=== PATIENT | female | born 1985 ===

== ENCOUNTER 2020-12-16 09:06 | Inpatient (IN) | payer MEDICAID, OTHER ==
[2020-12-16] MEDS ORDERED: FAMOTIDINE 20 MG/2 ML INJ IV NR (09:48)
[2020-12-16] MEDS ORDERED: BICITRA ORAL LIQD 30ML PO NR (09:48)
[2020-12-16] MEDS ORDERED: METOCLOPRAMIDE 10 MG/2 ML INJ IV NR (09:48)
--- NOTE | 2020-12-16 09:48 | History and Physical Report ---
History of Present Illness Date of examination: 12/16/20 Date of admission: 12/16/20 09:06 Chief complaint: ERCS Multiparity, desires surgical sterilization Past History Past Surgical History: section - Obstetrical History Expected Date of Delivery: 12/21/20 Actual Gestation: 39 Week(s) 2 Day(s) : 2 Para: 1 Medications and Allergies Allergies Allergy/AdvReac Type Severity Reaction Status Date / Time No Known Allergies Allergy Unverified 12/16/20 10:08 Home Medications Medication Instructions Recorded Confirmed Last Taken Type Ibuprofen [Motrin] 600 mg PO Q8H PRN #60 tablet 12/16/20 Unknown Rx oxyCODONE /ACETAMINOPHEN [Percocet 1 tab PO Q6HR PRN #20 tablet 12/16/20 Unknown Rx 5/325] Review of Systems All systems: negative (no OB complaints) - Physical Exam Breasts: Positive: deferred Cardiovascular: Regular rate Lungs: Positive: Clear to auscultation Abdomen: Positive: normal appearance, soft, normal bowel sounds Genitourinary (Female): Positive: normal external genitalia Vagina: Positive: normal moisture Uterus: Positive: enlarged Anus/Rectum: Positive: normal perianal skin Deep Tendon Reflex Grade: Normal +2 - Obstetrical FHR: category 1 Results Result Diagrams: 12/16/20 10:50 All other labs normal. 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
[2020-12-16] MEDS ORDERED: LACTATED RINGERS 1,000 ML IV SCH (10:00)
[2020-12-16] MEDS ORDERED: OXYTOCIN DRIP 30 UNITS/500 ML BAG IV SCH ×2 (10:00→17:00)
[2020-12-16 11:06] LABS: Basophils % (Auto) 0.2 % (0.0-1.8); Hematocrit 35.3 % (30.3-42.9); Hemoglobin 12.2 gm/dl (10.1-14.3); Lymphocytes # (Auto) 0.9 K/mm3 (1.2-5.4); Lymphocytes % (Auto) 8.3 % (13.4-35.0); Mean Corpuscular HGB Conc 35 % (30-34); Mean Corpuscular Volume 80 fl (79-97); Monocytes # (Auto) 0.8 K/mm3 (0.0-0.8); Monocytes % (Auto) 7.1 % (0.0-7.3); Platelet Count 209 K/mm3 (140-440); Red Blood Count 4.41 M/mm3 (3.65-5.03); Red Cell Distribution Width 15.5 % (13.2-15.2)
[2020-12-16] MEDS ORDERED: ceFAZolin/Water 2 GM/20 ML 2 GM/20 ML SYRINGE IV ONE (11:26)
[2020-12-16] MEDS ORDERED: FAMOTIDINE 20 MG/2 ML INJ IV ONE (13:40)
[2020-12-16] MEDS ORDERED: METOCLOPRAMIDE 10 MG/2 ML INJ IV ONE (13:40)
--- NOTE | 2020-12-16 13:40 | Procedure Note ---
OB Delivery Note - Delivery Date of Delivery: 12/16/20 Surgeon: MESFIN PATEL - Section Preop diagnosis: desires sterilization Postop diagnosis: same section procedure: repeat low transverse, bilateral tubal ligation Disposition: PACU Complications: none Narrative: Preop diagnosis: IUP at 39.2 weeks, previous sectionx1, multiparity desires permanent sterilization Postop diagnosis: Same Procedure: Repeat low transverse section via Pfannenstiel incision with Mofied Hollsopple Bilateral Tubal ligation Surgeon: Dr. Mesfin Patel Anesthesia spinal Complications none EBL 917ml IV fluids 850 mL Urine output 300 mL, clear Drains Lino to gravity Findings: Viable male with weight 2940gms and 8/9, normal uterus tubes and ovaries bilaterally Procedure: Patient was consented in OB triage, taken to the operating room where she received excellent spinal anesthesia. She was then placed in the dorsal supine position with a leftward tilt. The abdomen was prepped and draped in a sterile fashion, and a timeout was verified. Adequate anesthesia was confirmed prior to the skin incision. A Pfannenstiel skin incision was made with a scalpel taken down to the underlying structures and the fascia was incised in the midline. The incision was extended laterally with curved James scissors, the superior and inferior aspects of the fascial incisions were grasped with Stef clamps and the rectus muscles dissected sharply. The abdomen was entered bluntly in the midline carried down inferiorly with good visualization of the bladder. The vesicouterine peritoneum was tented with Jamaican forceps and incised in the midline with Metzenbaum scissors and the vesicouterine peritoneum taken down sharply. The uterine incision was then made sharply with a scalpel. The inferior and superior aspect of the uterine incisions were extended bluntly, the baby's head was delivered atraumatically. The remainder of the delivery was uncomplicated, no nuchal cord. The cord was clamped and cut and baby handed to waiting NICU team. An intact placenta with three-vessel cord delivered manually. The uterus was then cleared of all clots and debris and the uterus exteriorized. The uterine incision was closed in 2 layers of 0 vicryl with excellent hemostasis. Attention then turned to the fallopian tubes which were suture ligated in the usual fashion with excellent hemostasis. The abdomen was then irrigated with warm normal saline and the uterus placed back into the abdomen atraumatically. A second look at the uterine incision assured hemostasis. The peritoneum was closed with 3-0 Vicryl, the rectus muscles approximated with 3-0 Vicryl, and the fascia closed with 0 Vicryl in the usual fashion. The subcuticular structures were closed with interrupted sutures of 3-0 Vicryl and the skin closed with 4-0 Monocryl. A pressure dressing was applied. All sponge needle and instrument counts were correct x2. There were no complications. Mom and baby stable to PACU. EBL 917 mL Luis Patel MD
[2020-12-16] MEDS ORDERED: BICITRA ORAL LIQD 30ML PO ONE (14:00)
[2020-12-16] MEDS ORDERED: ceFAZolin/Water 2 GM/20 ML 2 GM/20 ML SYRINGE IV NR (14:00)
--- NOTE | 2020-12-16 14:34 | Anesthesia Day of Surgery ---
Anesthesia Day of Surgery - Day of Surgery Patient Examined: Yes Patient H&P Reviewed: Yes Patient is NPO: Yes Beta Blockers: No Cardiac Clearance: No Pulmonary Clearance: No Mitch's Test: Negative
[2020-12-16] MEDS ORDERED: MORPHINE 4 MG/1 ML INJ IV PRN ×2 (14:40→16:38)
[2020-12-16] MEDS ORDERED: NALOXONE 0.4 MG/1 ML INJ IV PRN ×2 (14:40→16:38)
[2020-12-16] MEDS ORDERED: HYDROmorphone 1 MG/1 ML INJ IV PRN ×2 (14:40)
[2020-12-16] MEDS ORDERED: ONDANSETRON 4 MG/2 ML INJ IV PRN (14:40)
--- NOTE | 2020-12-16 14:40 | Anesthesia Consultation ---
Anesthesia Consult and Med Hx Date of service: 12/16/20 - Airway Anesthetic Teeth Evaluation: Poor ROM Head & Neck: Adequate Mental/Hyoid Distance: Adequate Mallampati Class: Class II Intubation Access Assessment: Good - Pulmonary Exam CTA: Yes - Cardiac Exam Cardiac Exam: RRR - Pre-Operative Health Status ASA Pre-Surgery Classification: ASA2 Proposed Anesthetic Plan: Spinal - Pulmonary Hx Smoking: No Hx Asthma: No Hx Respiratory Symptoms: No SOB: No COPD: No Home Oxygen Therapy: No Hx Pneumonia: No Hx Sleep Apnea: No - Cardiovascular System Hx Hypertension: No Hx Coronary Artery Disease: No Hx Heart Attack/AMI: No Hx Angina: No Hx Percutaneous Transluminal Coronary Angioplasty (PTCA): No Hx Cardia Arrhythmia: No Hx Pacemaker: No Hx Internal Defibrillator: No Hx Valvular Heart Disease: No Hx Heart Murmur: No Hx Peripheral Vascular Disease: No - Central Nervous System Hx Neuromuscular Disorder: No Hx Seizures: No CVA: No Hx Back Pain: Yes Hx Psychiatric Problems: No - Gastrointestinal Hx Ulcer: No Hx Gastroesophageal Reflux Disease: Yes - Endocrine Hx Renal Disease: No Hx End Stage Renal Disease: No Hx Cirrhosis: No Hx Liver Disease: No Hx Insulin Dependent Diabetes: No Hx Non-Insulin Dependent Diabetes: Yes Hx Thyroid Disease: No Hx Hypothyroidism: No Hx Hyperthyroidism: No - Hematic Hx Anemia: No Hx Sickle Cell Disease: No - Other Systems Hx Alcohol Use: No Hx Substance Use: No Hx Cancer: No Hx Obesity: Yes
[2020-12-16] MEDS ORDERED: ONDANSETRON 4 MG/2 ML INJ ONE ×2 (15:05)
[2020-12-16] MEDS ORDERED: ceFAZolin/STERILE WATER 2 GM/20 ML SYRINGE IV ONE (15:13)
[2020-12-16] MEDS ORDERED: PHENYLEPHRINE/NS 1,000 MCG/10 ML SYRINGE (OR USE) IV ONE (15:20)
[2020-12-16] MEDS ORDERED: SODIUM CHLORIDE 0.9% IRR 1,500 ML BOTTLE IR ONE (15:33)
[2020-12-16] MEDS ORDERED: WATER FOR IRRIG STERILE 1,500 ML BOTTLE IR ONE (15:33)
[2020-12-16] MEDS ORDERED: BUPIVACAINE/PF (0.25%) 2.5 MG/ML 30 ML VIAL INFILTRATI ONE ×2 (15:49)
[2020-12-16] MEDS ORDERED: dexAMETHasone 20 MG/5 ML VIAL ONE (15:49)
[2020-12-16] MEDS ORDERED: KETOROLAC 30 MG/1 ML INJ ONE (16:11)
[2020-12-16] MEDS ORDERED: KETOROLAC 30 MG/1 ML INJ IV PRN (16:38)
[2020-12-16] MEDS ORDERED: MAGNESIUM HYDROXIDE (MOM) ORAL LIQD UDC PO PRN (16:38)
[2020-12-16] MEDS ORDERED: HYDROCORTISONE 25 MG RECTAL SUPP PR PRN (16:38)
[2020-12-16] MEDS ORDERED: SIMETHICONE 80 MG CHEW TAB PO PRN (16:38)
[2020-12-16] MEDS ORDERED: SENNOSIDES 8.6 MG TAB PO PRN (16:38)
[2020-12-16] MEDS ORDERED: MORPHINE 2 MG/1 ML INJ IV PRN (16:38)
[2020-12-16] MEDS ORDERED: WITCH HAZEL/ GLYCERIN PAD TP PRN (16:38)
[2020-12-16] MEDS ORDERED: IBUPROFEN 600 MG TAB PO PRN (16:38)
--- NOTE | 2020-12-16 17:05 | Progress Note ---
Spinal Anesthesia Block - Spinal Anesthesia Block Start Time: 15:05 Stop Time: 15:12 Performed by:: JO MYRICK Procedure: Patient IDed, H&P reviewed, all questions and concerns were answered, and consent was signed. Timeout was performed at bedside. Patient in sitting position. Sterile prep and drape was performed. [3] ml of 1% lidocaine skin wheal at L[3]- L [4]. Needle introducer advanced. 25 gauge spinal needle advanced. Clear, free flowing CSF. negative blood, negative paresthesia. Spinal dose given. All needles removed. Patient tolerated procedure.
--- NOTE | 2020-12-16 17:07 | Progress Note ---
Regional Anesthesia Block - Regional Anesthesia Block Start Time: 14:42 Stop Time: 14:45 Performed By:: JO MYRICK Procedure: Patient consented for TAP block for post surgical pain management. Patient identified, monitors placed, and time out performed. TAP identified bilaterally via ultrasound. Skin prepped bilaterally with [chlorhexidine] and [22g stimuplex] needle advanced to the TAP. [Marcaine 0.25% 35ml] injected under ultrasound guidance on the [left] side. [Marcaine 0.25% 35ml] injected under ultrasound guidance on the [right] side. Negative aspiration every 5mL, No change in heart rate or rhythm. Patient tolerated the procedure well. No apparent complications seen.
[2020-12-16] MEDS ORDERED: METHYLERGONOVINE MALEATE 0.2 MG/ML VIAL IM ONE (17:35)
[2020-12-16] MEDS: KETOROLAC 30 MG/1 ML INJ IV PRN (21:49)
--- NOTE | 2020-12-16 22:38 | Post Anesthesia Evaluation ---
- Post Anesthesia Evaluation Patient Participated: Yes Airway Patent: Yes Stable Respiratory Function: Yes Nausea/Vomiting: No Temp > 96.8F: Yes Pain Manageable: Yes Adequeate Hydration: Yes Anesthesia Complications: No Block Receding Appropriately: Yes Patient on Ventilator: No
[2020-12-17 04:35] LABS: Hematocrit 32.9 % (30.3-42.9); Hemoglobin 11.1 gm/dl (10.1-14.3)
[2020-12-17] MEDS: KETOROLAC 30 MG/1 ML INJ IV PRN (06:56)
--- NOTE | 2020-12-17 08:16 | Progress Note ---
Assessment and Plan continue routine postop care Luis Reyes MD Subjective - Subjective Date of service: 12/17/20 Patient reports: appetite normal, voiding normally, pain well controlled, ambulating normally [place]: doing well Objective - Vital Signs Latest vital signs: Vital Signs Temp Pulse Resp BP BP Pulse Ox Pulse Ox 12/17/20 04:00 98 F 61 18 128/70 97 12/17/20 00:07 98 F 65 18 135/78 12/16/20 21:00 98 12/16/20 18:45 99 F 74 18 137/86 97 12/16/20 17:54 76 22 124/51 99 12/16/20 17:40 70 22 102/56 99 12/16/20 17:26 75 20 107/50 100 12/16/20 17:10 69 15 101/45 99 12/16/20 16:55 70 18 96/67 99 12/16/20 16:50 71 21 112/60 100 12/16/20 16:45 74 16 102/62 99 12/16/20 16:41 98.4 F 83 13 103/66 99 12/16/20 14:50 95 H 99 12/16/20 14:46 102 H 138/84 12/16/20 14:45 101 H 98 12/16/20 14:34 101 H 98 12/16/20 14:29 92 H 98 12/16/20 14:24 94 H 99 12/16/20 14:19 89 98 12/16/20 14:14 103 H 98 12/16/20 14:09 86 98 12/16/20 14:04 90 98 12/16/20 13:59 92 H 99 12/16/20 13:54 91 H 98 12/16/20 13:49 94 H 98 12/16/20 13:44 95 H 98 12/16/20 13:39 79 98 12/16/20 13:34 87 98 12/16/20 13:29 87 98 12/16/20 13:24 92 H 98 12/16/20 13:19 109 H 99 12/16/20 13:14 101 H 99 12/16/20 13:09 97 H 98 12/16/20 13:04 90 99 12/16/20 12:59 88 98 12/16/20 12:54 92 H 99 12/16/20 12:49 95 H 99 12/16/20 12:44 89 99 12/16/20 12:39 95 H 98 12/16/20 12:34 88 98 12/16/20 12:29 89 99 12/16/20 12:24 99 H 99 12/16/20 12:19 87 99 12/16/20 12:14 89 99 12/16/20 12:09 84 99 12/16/20 12:04 93 H 99 12/16/20 11:59 87 98 12/16/20 11:54 97 H 98 12/16/20 11:49 99 H 98 12/16/20 11:44 102 H 99 12/16/20 11:39 100 H 99 12/16/20 11:34 96 H 99 12/16/20 11:29 97 H 99 12/16/20 11:24 87 100 12/16/20 11:19 94 H 98 12/16/20 11:14 104 H 99 12/16/20 11:09 99 H 99 12/16/20 11:04 89 137/86 99 12/16/20 10:59 104 H 99 12/16/20 10:54 93 H 99 12/16/20 10:49 95 H 99 12/16/20 10:44 98 H 99 12/16/20 10:39 94 H 99 12/16/20 10:34 121 H 99 12/16/20 10:29 102 H 98 12/16/20 10:24 102 H 99 12/16/20 10:19 94 H 98 12/16/20 10:14 92 H 98 12/16/20 10:09 89 98 12/16/20 10:04 101 H 99 12/16/20 09:59 117 H 99 Intake and Output 12/16/20 12/17/20 12/17/20 23:59 07:59 15:59 Intake Total 1100 Output Total 400 500 Balance 700 -500 Intake: IV 1100 Output: Urine 400 500 Indwelling Catheter 500 Uretheral (Lino) 50 Other: Total, Output Amount 500 Estimated Blood Loss 917 - Exam Breasts: Present: deferred Cardiovascular: Present: Regular rate Lungs: Present: Clear to auscultation Abdomen: Present: normal appearance, soft, normal bowel sounds Uterus: Present: fundal height below umbilicus Extremities: Present: normal Deep Tendon Reflex Grade: Normal +2 Incision: Present: normal, dry - Labs Labs: Abnormal lab results 12/16/20 12/16/20 Range/Units 09:54 10:50 MCHC 35 H (30-34) % RDW 15.5 H (13.2-15.2) % Lymph % (Auto) 8.3 L (13.4-35.0) % Lymph # (Auto) 0.9 L (1.2-5.4) K/mm3 Seg Neutrophils % 84.4 H (40.0-70.0) % Seg Neutrophils # 9.0 H (1.8-7.7) K/mm3 Coronavirus (PCR) Positive A (Negative)
[2020-12-17] MEDS: oxyCODONE /ACETAMINOPHEN 5-325MG TAB PO PRN ×2 (11:41→20:50)
[2020-12-17] MEDS: IBUPROFEN 800 MG TAB PO PRN (16:58)
[2020-12-18] MEDS: IBUPROFEN 800 MG TAB PO PRN ×3 (02:07→18:34)
[2020-12-18] MEDS: LANOLIN/ZINC/DIMETHICONE (LANSINOH) 7 GM TP PRN (11:14)
--- NOTE | 2020-12-18 11:14 | Progress Note ---
Assessment and Plan A: /postop day 2 S/P repeat LTCS with BTL. Coronavirus positive (asymptomatic). P: Continue routine /postop care. Coronavirus precautions. Anticipate discharge home tomorrow if patient continues to do well. Subjective - Subjective Date of service: 12/18/20 Principal diagnosis: /postop day 2 S/P repeat LTCS with BTL Interval history: Coronavirus positive Patient reports: appetite normal, voiding normally, pain well controlled, flatus, ambulating normally, no dizzy ambulation, no nauseated [place]: doing well, nursing well Objective - Vital Signs Latest vital signs: Vital Signs Temp Pulse Resp BP Pulse Ox Pulse Ox 12/18/20 09:20 100 12/18/20 00:00 97.9 F 65 20 119/80 100 12/17/20 20:50 97.8 F 67 20 115/67 100 100 12/17/20 17:24 98.2 F 63 20 111/68 100 12/17/20 16:58 20 Intake and Output 12/17/20 12/18/20 12/18/20 23:59 07:59 15:59 Intake Total 120 Balance 120 Intake: Oral 120 Other: Total, Intake Amount 120 # Voids Indwelling Catheter 1 - Exam Cardiovascular: Present: Regular rate Lungs: Present: Clear to auscultation Abdomen: Present: normal appearance, soft. Absent: distention, tenderness, guarding, rigidity Uterus: Present: firm, fundal height below umbilicus. Absent: bogginess, tenderness Incision: Present: dressed
--- NOTE | 2020-12-18 11:52 | XRay Report ---
CHEST 2 VIEWS INDICATION / CLINICAL INFORMATION: coronavirus positive. COMPARISON: None available. FINDINGS: SUPPORT DEVICES: None. HEART / MEDIASTINUM: No significant abnormality. LUNGS / PLEURA: No significant pulmonary or pleural abnormality. No pneumothorax. ADDITIONAL FINDINGS: No significant additional findings. IMPRESSION: 1. No acute findings. Signer Name: Kiko Marcelo MD Signed: 12/18/2020 11:48 AM Workstation Name: [id number]
[2020-12-18] MEDS: oxyCODONE /ACETAMINOPHEN 5-325MG TAB PO PRN ×2 (14:57→21:35)
[2020-12-19] MEDS: oxyCODONE /ACETAMINOPHEN 5-325MG TAB PO PRN (05:15)
--- NOTE | 2020-12-19 07:39 | Progress Note ---
Assessment and Plan A: /postop day 3 S/P repeat section with BTL Coronavirus positive (asymptomatic). P: Discharge patient home today. Discussed with patient /postop discharge instructions and warning signs. Care of incision and activity restrictions discussed with patient. Advised patient to continue to take her vitamin daily at home. Advised patient to avoid intercourse, lifting, housework, driving, stair climbing, and tub baths (patient may take showers). Advised patient to self quarantine at home for 2 weeks due to positive coronavirus and to seek medical attention immediately if she develops symptoms. Advised patient to follow up at [facility] in 1 week. Patient voiced understanding of all instructions. Subjective - Subjective Date of service: 12/19/20 Principal diagnosis: /postop day 3 S/P repeat LTCS with BTL Interval history: Doing well. Desires discharge home today. Patient reports: appetite normal, voiding normally, pain well controlled, flatus, ambulating normally, no dizzy ambulation, no nauseated [place]: doing well Objective - Vital Signs Latest vital signs: Vital Signs Temp Pulse Resp BP Pulse Ox Pulse Ox 12/18/20 20:50 97.7 F 74 16 123/75 98 100 12/18/20 09:20 100 - Exam Cardiovascular: Present: Regular rate Lungs: Present: Clear to auscultation Abdomen: Present: normal appearance, soft, normal bowel sounds. Absent: distention, tenderness, guarding, rigidity Uterus: Present: normal, firm, fundal height below umbilicus. Absent: bogginess, tenderness Extremities: Present: normal. Absent: tenderness, edema Incision: Present: normal, dry, intact
--- NOTE | 2020-12-19 07:43 | Discharge Summary ---
Providers - Providers Date of Admission: 12/16/20 09:06 Date of discharge: 12/19/20 Attending physician: MESFIN PATEL MD Primary care physician: MESFIN PATEL MD Hospitalization Reason for admission: section Delivery: Procedure: bilateral tubal ligation, repeat low transverse Incision: normal, dry, intact Other procedures: tubal ligation complications: other (coronavirus positive (asymptomatic)) Discharge diagnosis: IUP at term delivered baby: male Pertinent studies: Labs Hospital course: Stable hospital course Condition at discharge: Good Disposition: 01 HOME / SELF CARE / HOMELESS - Discharge Diagnoses (1) Term delivered Status: Acute Plan - Discharge Medications Prescriptions: Ibuprofen [Motrin] 600 mg PO Q8H PRN #60 tablet PRN Reason: Pain oxyCODONE /ACETAMINOPHEN [Percocet 5/325] 1 tab PO Q6HR PRN #20 tablet PRN Reason: Pain - Provider Discharge Summary Activity: routine, no sex for 6 weeks, no heavy lifting 4 weeks, no strenuous exercise Diet: routine Instructions: routine Additional instructions: Continue to take your vitamin daily. Quarantine at home for 2 weeks. Follow up at [facility] in 1 week. Call your doctor immediately for: * Fever > 100.5 * Heavy vaginal bleeding ( >1 pad per hour) * Severe persistent headache * Shortness of breath * Reddened, hot, painful area to leg or breast * Drainage or odor from incision. * Keep incision clean and dry at all times and follow doctor's instructions regarding bathing/showering - Follow up plan Follow up: [facility] [Referring] - 7 Days
[2020-12-19] MEDS: LANOLIN/ZINC/DIMETHICONE (LANSINOH) 7 GM TP PRN (09:34)
[2020-12-19] MEDS: IBUPROFEN 800 MG TAB PO PRN (09:34)
[2020-12-19 14:46] VITALS: BP 138/78
== END 2020-12-19 14:20 | disposition home or self-care (01) | DRG 783 ==
LOC: APU 09:06 → OB 18:22
PROVIDERS: ADMIT Obstetrics & Gynecology; ATTEND Obstetrics & Gynecology
PROC: 10D00Z1 Extraction of Products of Conception, Low, Open Approach (ICD-10-PCS; principal; 2020-12-16)
PROC: 0UB70ZZ Excision of Bilateral Fallopian Tubes, Open Approach (ICD-10-PCS; 2020-12-16)
PROC: 3E0T3BZ Introduction of Anesthetic Agent into Peripheral Nerves and Plexi, Percutaneous Approach (ICD-10-PCS; 2020-12-16)
DX: O98.52 Other viral diseases complicating childbirth (principal); O24.12 Pre-existing type 2 diabetes mellitus, in childbirth; U07.1 COVID-19; O34.211 Maternal care for low transverse scar from previous cesarean delivery; N85.8 Other specified noninflammatory disorders of uterus; Z3A.39 39 weeks gestation of pregnancy; Z37.0 Single live birth; O99.62 Diseases of the digestive system complicating childbirth; K21.9 Gastro-esophageal reflux disease without esophagitis
CPT/HCPCS: 36415; 71046; 82962; 85014; 85018; 85025; 86850; 86900; 86901; 88302; 88307; G0378; J0690; J1100; J1885; J2210; J2370; J2405; J2765; J3490; J7120; U0003